=== PATIENT | male | born 1995 | race African-American/Black ===

== ENCOUNTER 2018-10-04 17:43 | Emergency (ER) | payer SELFPAY ==
[~2018-10-04] VITALS: Ht 170.2 cm; Wt 75.0 kg
[2018-10-04] MEDS ORDERED: IBUPROFEN 800 MG TABLET PO ONE (18:30)
[2018-10-04 19:55] VITALS: BP 124/70
== END 2018-10-04 20:20 | disposition home or self-care (01) ==
LOC: EMS 17:45
DX: S62.324A Displaced fracture of shaft of fourth metacarpal bone, right hand, initial encounter for closed fracture (principal); W21.05XA Struck by basketball, initial encounter; Y93.67 Activity, basketball; Y92.89 Other specified places as the place of occurrence of the external cause; Y99.8 Other external cause status